=== PATIENT | female | born 1985 | race Caucasian/White ===

== ENCOUNTER 2018-08-04 07:35 | Emergency (ER) | payer BC, OTHER ==
[~2018-08-04] VITALS: Ht 157.5 cm; Wt 128.0 kg
[2018-08-04 07:44] VITALS: BP 142/68; PULSE 112; RESP 16; Ht 157.5 cm; Wt 128.0 kg
--- NOTE | 2018-08-04 08:29 | ERD ---
ER Documentation Chief Complaint Chief Complaint BIB RA FOR EVAL OF SEIZURE. HX OF SEIZURES TAKES LEVETIRACETAM HPI This is a 33-year-old female with a prior history of tonic-clonic seizures, currently on Keppra who presents with a seizure episode. Patient did bite her tongue earlier today, seizure episode was witnessed by mother, described as eye deviation and shaking, with a brief postictal period. She is now back at her baseline, she has not had any fevers today, endorses URI symptoms over the last week, no head trauma, no recent new medications aside from [id number] cold medications, she has been compliant with her seizure medication. ROS All systems reviewed and are negative except as per history of present illness. Allergies Allergies: Coded Allergies: No Known Allergy (Unverified , 08/04/18) PMhx/Soc Medical and Surgical Hx: pt denies Medical Hx, pt denies Surgical Hx Hx Alcohol Use: No Hx Substance Use: No Hx Tobacco Use: No Smoking Status: Never smoker Physical Exam Vitals Vital Signs Date Temp Pulse Resp B/P (MAP) Pulse Ox O2 O2 Flow FiO2 Time Delivery Rate 08/04/18 98.2 112 16 142/68 99 07:44 (92) Physical Exam Const: No acute distress Head: Atraumatic Eyes: Normal Conjunctiva ENT: Normal External Ears, Nose and Mouth. Superficial abrasions noted to the tongue Neck: Full range of motion. No meningismus. Resp: Clear to auscultation bilaterally Cardio: Regular rate and rhythm, no murmurs Abd: Soft, non tender, non distended. Normal bowel sounds Skin: No petechiae or rashes Back: No midline or flank tenderness Ext: No cyanosis, or edema Neur: Awake and alert. Cranial nerves II through XII intact, strength 5 out of 5 bilaterally, alert and oriented x4. Psych: Normal Mood and Affect Procedures/MDM 33-year-old female presents with recurrent seizure, without any apparent complications. Exam reveals no evidence of head trauma, she is afebrile and nontoxic-appearing, she appears in no distress she has returned to her neurologic baseline. She has a neurologist to follow-up with, advised to continue her seizure medications, strict return precautions were given for seizures lasting more than 5 minutes, any signs of lethargy, head trauma, or any other concerning features, she is not driving currently. At discharge the patient was in no acute distress. Departure Diagnosis: Primary Impression: Seizure disorder Condition: Stable Patient Instructions: Seizure, Recurrent [Adult] Additional Instructions: Call your primary care doctor TOMORROW for an appointment during the next 2-3 days.See the doctor sooner or return here if your condition worsens before your appointment time. DESIRAE ARORA MD Aug 04, 2018 08:28
== END 2018-08-04 09:17 | disposition home or self-care (01) ==
LOC: E/R 07:35
DX: G40.909 Epilepsy, unspecified, not intractable, without status epilepticus (principal); R40.2142 Coma scale, eyes open, spontaneous, at arrival to emergency department; R40.2252 Coma scale, best verbal response, oriented, at arrival to emergency department; R40.2362 Coma scale, best motor response, obeys commands, at arrival to emergency department
CPT/HCPCS: 99282